=== PATIENT | female | born 1955 | race Caucasian/White ===

== ENCOUNTER 2019-08-10 22:26 | Emergency (ER) | payer OTHER ==
[~2019-08-10] VITALS: Ht 154.9 cm; Wt 122.5 kg
[2019-08-10] MEDS ORDERED: FENOFIBRATE160 MG PO (22:59)
[2019-08-10] MEDS ORDERED: NORVASC5 M1 PO (22:59)
[2019-08-10] MEDS ORDERED: BENTYL 10 MG CA10 MG PO (22:59)
[2019-08-10 23:00] LABS: URINE BILIRUBIN NEGATIVE (Negative); URINE BLOOD 3+ (Negative); URINE CLARITY CLOUDY; URINE COLOR BROWN; URINE GLUCOSE-RANDOM TRACE (Negative); URINE KETONES NEGATIVE (Negative); URINE PROTEIN 3+ (Negative); URINE SPECIFIC GRAVITY >= 1.030 (1.005-1.030); URINE UROBILINOGEN 0.2 E.U./dl (0.2-1.0)
[2019-08-10] MEDS ORDERED: VALSARTAN160 MG PO (23:00)
[2019-08-10] MEDS ORDERED: TENORMIN25 MG PO (23:00)
[2019-08-10 23:01] LABS: URINE LEUKOCYTES-REFLEX 3+ (Negative); URINE NITRITE-REFLEX POSITIVE (Negative)
[2019-08-10] MEDS ORDERED: LEVO-T75 MCG PO (23:01)
[2019-08-10] MEDS ORDERED: LIPITOR 20 MG T20 M1 PO (23:01)
[2019-08-10 23:02] LABS: SQUAMOUS 4-10 Moderate /LPF (0-3); URINE WBC-REFLEX >25 Many /HPF (0-5); WBC CLUMPS Moderate (None Seen)
[2019-08-10] MEDS ORDERED: TRULICITY1.5 MG/0.5 SUBQ (23:02)
[2019-08-10 23:03] LABS: BACTERIA-REFLEX >30 Many /HPF (None Seen); CASTS None Seen /LPF (None Seen); CRYSTALS None Seen /LPF (None Seen); MUCUS 4-6 Moderate strn/LPF (None Seen); URINE RBC >20 Many /HPF (0-2)
[2019-08-10] MEDS ORDERED: ACTOS 30 MG TAB30 M1 PO (23:03)
[2019-08-10] MEDS ORDERED: ALIVE WOMEN'S1 EAC2 PO (23:04)
[2019-08-10] MEDS ORDERED: CLARITIN10 M3 PO (23:04)
[2019-08-10] MEDS ORDERED: OMEPRAZOLE40 MG PO (23:04)
[2019-08-10] MEDS ORDERED: VITAMIN C500 M3 PO (23:05)
[2019-08-10] MEDS ORDERED: VITAMIN D31250 MCG PO (23:05)
[2019-08-10] MEDS ORDERED: FIBER SELECT G1 EACH PO (23:05)
[2019-08-10] MEDS ORDERED: GLUCOSAMINE CH1 EAC4 PO (23:06)
[2019-08-10] MEDS ORDERED: MAGNESIUM250 M1 PO (23:07)
[2019-08-11] MEDS ORDERED: MACROBID 100 M100 M1 PO (00:19)
[2019-08-11] MEDS ORDERED: PYRIDIUM200 MG PO (00:19)
[2019-08-11 00:26] VITALS: BP 152/81
== END 2019-08-11 00:29 | disposition home or self-care (01) ==
LOC: M.ERS 22:26
PROVIDERS: Emergency Medicine
DX: N39.0 Urinary tract infection, site not specified (principal); I10 Essential (primary) hypertension; E11.9 Type 2 diabetes mellitus without complications